=== PATIENT | female | born 2000 | race Two or more races ===

== ENCOUNTER 2024-10-15 04:43 | Inpatient (IN) ==
[2024-10-15] MEDS ORDERED: LACTATED RINGER'S 1,000 ML IV PRN (04:48)
[2024-10-15] MEDS ORDERED: SODIUM CHLORIDE 0.9% 100 ML IV PRN (04:51)
[2024-10-15] MEDS: OXYTOCIN 30 UNITS/NSS 30 UNITS/500 ML BAG IV PRN (05:00)
[2024-10-15 05:22] LABS: Hematocrit (blood only) 30.8 % (37.0-47.0); Mean Corpuscular Hemoglobin 30.8 pg (25.0-34.0); Mean Corpuscular Hgb Conc 35.7 g/dL (32.0-36.0); Mean Corpuscular Volume 86.3 fL (80.0-100.0); Mean Platelet Volume 10.3 fL (9.4-12.4); Platelet Count 316 K/uL (130-400); RDW Coefficient of Variation 12.1 % (11.5-14.5); RDW Standard Deviation 37.5 fL (36.4-46.3); Red Blood Count 3.57 M/uL (4.20-5.40)
--- NOTE | 2024-10-15 05:25 | History & Physical Report ---
Date of Service October 15, 2024 Assessment & Plan (1) hemorrhage: (2) Labial tear: Plan vitals are stable. fundus firm. Vitals stable with mild tachycardia. will need to examine and repair. See operative report for this. Await labs. Discussed need for monitoring and possiblity of transfusion. Admission and Anticipated Discharge Date Admission Date: October 15, 2024 History of Present Illness Chief Complaint: home , pph, tear Primary Care Provider: NO PCP Patient is a 24yowf G10 who was accepted by ambulance for concerns for pph and tear after a home . Patient having pnc with Urvashi Mathew CPM. Got a call that she had called the ambulance to come for the patient. I spoke to Urvashi about the delivery. She had an uncomplicated labor with srom and delivered a 7# baby after pushing for about 40 minutes. Urvashi notes the delivery was uncomplicated at about 10:30 pm. She then noted long slow trickle with passing clots. She was given 10U IM pit and 800mcg of buccal cytotec. She then eventually did a vaginal exam and noted another 1000cc of clot removed. She notes her uterus then was firm and bleeding was minimal. She notes that she could not see her cervix but noted a tear that was beyond her scope to repair. The patient was dizzy on trying to sit up. Her blood pressure is stable both at home and in the ambulance. She is slightly tachy in the 110s. Baby is Tanner. Patient and Urvashi notes that her pnc was uncomplicated. I have some pnr. Gained about 40#. Had an "anatomy " ultrasound at [facility] . I do not have access to PNR. Was at [facility] a couple of days ago to be monitored and had some labs drawn. Per her report, She thought she might have ruptured on Friday and the lead generation marketing manager could not confirm. sent to the hospital. Ruled out for srom, but patient notes her blood pressure was a little high. Notes work up was negative and she was sent home. She started cassius yesterday at around 7 am. Urvashi estimates a blood loss of 2000cc. she notes she thinks the perineum and rectum intact. knda meds--herbals Allergies Allergy/AdvReac Type Severity Reaction Status Date / Time No Known Allergies Allergy Unverified 10/15/24 04:49 Patient History Medical History No known health problems Surgical History (Updated 10/15/24 @ 04:51 by Urvashi Carpenter, ERNESTO) No history of previous surgery Social History Smoking Status: Never smoker Hx Alcohol Use: No Hx Substance Use: No Preferred Language: Serbian Communication Ability: Effective Bottling Line Attendant Required: No Beliefs That Will Affect Care: None marital status: Current Living Situation: Spouse Feels Safe at Home: No Assistive Devices: None OB History g1--present STERILE TECHNICIAN History noncontributory Physical Exam Constitutional: WD/WN, vitals as above Cardiovascular: RRR, no murmur, no edema Gastrointestinal (Abdomen): fundus firm, 1 below u with a firm push. A small trickle of dark blood noted. Psychiatric: A+Ox3, euthymic affect Results & Data Vital Signs (Past 12 Hours) Vital Signs Temp Pulse Resp Pulse Ox 10/15/24 05:10 90 10/15/24 05:10 112 H 10/15/24 05:08 98 10/15/24 05:08 116 H 10/15/24 05:03 99 10/15/24 05:03 111 H 10/15/24 04:58 98 10/15/24 04:58 124 H 10/15/24 04:55 37.9 C H 18 10/15/24 04:53 122 H 98 10/15/24 04:48 128 H 99 Coding Level of Care Code 07925 INT INP/OBS CARE 2/55MIN Diagnoses hemorrhage O72.1 Labial tear S31.41XA
[2024-10-15] MEDS: LIDOCAINE 1% LOCAL 20 ML VIAL INFIL PRN (05:29)
--- NOTE | 2024-10-15 05:29 | Delivery Summary ---
Vaginal Delivery Summary Date of Service October 15, 2024 Vaginal Delivery Summary 1st Degree LAC (right labial laceration) Pre-operative Diagnosis: --delivered pph right labial laceration and repair Post-operative Diagnosis: same Procedure: repair of right labial laceration EBL: 25cc Anesthesia: local infiltration of lidocaine Procedure: Verbal consent was obtained for exam and repair. The patient was placed in the labor and delivery bed in [facility]. The fundus was palpated and was firm, one below u. Evaluation of the perineum shows it is intact. The cervix and upper vagina and sulcus was examined and no lacerations noted. There was a right labial laceration that went down to the introitus. This area was infiltrated with lidocaine. Several interrupted sutures were placed to repair this tear. Hemostasis was good at the end of the procedure. there was a small, hemostatic skin separation above the clitoris. This was left alone. The patient tolerated well. Will monitor closely for continued blood loss. [facility] Vaginal Delivery Charge Delivery Type Details: 1st Degree LAC (right labial laceration)
[2024-10-15 05:34] LABS: Albumin Globulin Ratio 1.3 (0.9-2); Albumin Level 3.1 gm/dl (3.4-5.0); BUN Creatinine Ratio 15.7 (10-20); Bilirubin,Total 0.9 mg/dl (0.2-1.0); Calcium 8.1 mg/dl (8.6-10.3); Creatinine Clr Calc Pharmacy 157.6 ml/min; Globulin 2.3 gm/dl (2.5-4.0); Potassium 4.1 mmol/L (3.5-5.1); Total Protein 5.4 gm/dl (6.0-8.3)
--- NOTE | 2024-10-15 05:59 | Communication Note ---
Date of Service: October 15, 2024 Patient told nursing she was feeling some tightness in her chest. I came in and she notes it already feels better. No sob, no cp. Notes she has a hx of reflux but not for sometime in the . Asked if it could be that and she thought it might be. bp 140/80, pulse 110s, sats 99% on room air. Chest--cta bilaterally. ext--no tenderness, tr edema. Will treat with tums. Check ekg.
--- NOTE | 2024-10-15 06:09 | Communication Note ---
Date of Service: October 15, 2024 PN labs reviewed. Rubella nonimmune. gbs neg. O+/ab neg. Offered and recommend mmr. Declines at present. Mother in room and notes she did have mmr in the past. Chest pressure has resolved. Vitals stable.
[2024-10-15] MEDS ORDERED: IBUPROFEN 600 MG TAB PO PRN (06:13)
[2024-10-15] MEDS ORDERED: oxyCODONE/ACETAMINOPHEN 5mg/325mg TAB PO PRN (06:13)
[2024-10-15] MEDS ORDERED: bisacodyL 10 MG SUPP PR PRN (06:13)
[2024-10-15] MEDS ORDERED: DIPHTHER/TETAN/PERTUS Vaccine (Tdap, Adol/Adult) 0.5mL IM ONE (06:13)
[2024-10-15] MEDS ORDERED: ACETAMINOPHEN 325 MG TAB PO PRN (06:13)
[2024-10-15] MEDS ORDERED: HYDROCORTISONE ACETATE 25 MG SUPP PR PRN (06:13)
[2024-10-15] MEDS: CALCIUM CARBONATE 500 MG CHEWABLE TAB PO PRN (06:15)
[2024-10-15 07:23] VITALS: RESP 20; TEMP 99.3
[2024-10-15] MEDS: BENZOCAINE 20% SPRY 85 APPLN/85 GM CAN EXT PRN (07:39)
[2024-10-15] MEDS ORDERED: DOCUSATE SODIUM 100 MG CAP PO SCH (08:00)
[2024-10-15] MEDS ORDERED: PRENATAL VITAMIN 1 TAB PO SCH (08:00)
[2024-10-15 08:53] VITALS: BP 114/61
[2024-10-15 09:04] VITALS: PULSE 128; O2SAT 97
--- NOTE | 2024-10-15 14:27 | Electrocardiogram Report ---
Test Reason : Blood Pressure : */* mmHG Vent. Rate : 120 BPM Atrial Rate : 120 BPM P-R Int : 128 ms QRS Dur : 74 ms QT Int : 300 ms P-R-T Axes : 42 47 40 degrees QTcB Int : 424 ms Sinus tachycardia Otherwise normal ECG No previous ECGs available Confirmed by Jeromy Ayala ([id number]) on 10/15/2024 2:26:39 PM Referred By: REFERRED SELF Confirmed By: Jeromy Ayala
[2024-10-16] MEDS ORDERED: bisacodyL 5 MG TABEC PO SCH (20:00)
== END 2024-10-15 09:50 | disposition home or self-care (01) | DRG 776 ==
LOC: OPB 04:43 → 4S1 04:46